=== PATIENT | female | born 1995 | race American Indian/Alaskan Native ===

== ENCOUNTER 2019-07-26 08:41 | Emergency (ER) | payer OTHER, BC, MEDICAID ==
[2019-07-26 08:48] VITALS: BP 126/74
[2019-07-26] MEDS ORDERED: IBUPROFEN 800 MG TAB PO ONE (11:45)
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
== END 2019-07-26 14:04 | disposition home or self-care (01) ==
LOC: ED 08:41
DX: S63.502A Unspecified sprain of left wrist, initial encounter (principal); M54.9 Dorsalgia, unspecified; V49.59XA Passenger injured in collision with other motor vehicles in traffic accident, initial encounter; X58.XXXA Exposure to other specified factors, initial encounter; Y93.89 Activity, other specified; Y92.488 Other paved roadways as the place of occurrence of the external cause; Y99.8 Other external cause status
CPT/HCPCS: 72070; 72100; 99283